=== PATIENT | male | born 1975 | race Native Hawaiian/Other Pacific Islander ===

== ENCOUNTER 2016-12-14 14:15 | Outpatient (CLI) | payer OTHER ==
[~2016-12-14 14:15] MED LIST: ALLEGRA ALRG180 M1 PO; BROMFED DM PO; FLUT0.05 NAS; LIPITOR10 MG PO; MEDROL DOSEPAK4 MG OR; SINGULAIR10 MG OR; SINGULAIR10 MG PO; SPIRIVA IN; Z-PAK PO; ZANTAC300 MG PO
[2016-12-14 14:31] LABS: PLATELET COUNT 234 K/uL (142-355)
[2016-12-14 15:25] LABS: POTASSIUM 4.1 mmol/L (3.6-5.2); SODIUM 137 mmol/L (136-145)
[2017-01-10] MEDS ORDERED: TAMS0.4C PO (09:34)
[2017-01-10] MEDS ORDERED: AMIT10TA21 PO (09:35)
[2017-01-10] MEDS ORDERED: ALBU0.5N6 IN (09:37)
== END 2016-12-14 21:08 | disposition home or self-care (01) ==
LOC: LAB 14:15
PROVIDERS: Nurse Practitioner Family
DX: J44.9 Chronic obstructive pulmonary disease, unspecified (principal); E78.5 Hyperlipidemia, unspecified; K21.9 Gastro-esophageal reflux disease without esophagitis; R53.81 Other malaise; Z79.899 Other long term (current) drug therapy
CPT/HCPCS: 80053; 80061; 83036; 84436; 84443; 85027

== ENCOUNTER 2016-12-26 13:05 | Outpatient (CLI) | payer OTHER ==
[2017-01-10] MEDS ORDERED: TAMS0.4C PO (09:34)
[2017-01-10] MEDS ORDERED: AMIT10TA21 PO (09:35)
[2017-01-10] MEDS ORDERED: ALBU0.5N6 IN (09:37)
== END 2016-12-26 14:05 | disposition home or self-care (01) ==
LOC: LAB 13:05
DX: R94.5 Abnormal results of liver function studies (principal); Z72.51 High risk heterosexual behavior; E78.4 Other hyperlipidemia
CPT/HCPCS: 80074

== ENCOUNTER 2017-01-02 09:28 | Outpatient (CLI) | payer OTHER ==
[2017-01-10] MEDS ORDERED: TAMS0.4C PO (09:34)
[2017-01-10] MEDS ORDERED: AMIT10TA21 PO (09:35)
[2017-01-10] MEDS ORDERED: ALBU0.5N6 IN (09:37)
== END 2017-01-02 19:19 | disposition home or self-care (01) ==
LOC: US 09:28
DX: R94.5 Abnormal results of liver function studies (principal)

== ENCOUNTER 2017-01-08 21:13 | Outpatient (CLI) | payer OTHER ==
[2017-01-10] MEDS ORDERED: TAMS0.4C PO (09:34)
[2017-01-10] MEDS ORDERED: AMIT10TA21 PO (09:35)
[2017-01-10] MEDS ORDERED: ALBU0.5N6 IN (09:37)
== END 2017-01-08 21:15 | disposition short-term general hospital (02) ==
LOC: AMB 21:13
DX: K92.0 Hematemesis (principal); R10.84 Generalized abdominal pain
CPT/HCPCS: A0425; A0427

== ENCOUNTER 2017-09-25 08:53 | Inpatient (IN) | payer OTHER ==
[~2017-09-25] VITALS: Ht 180.3 cm; Wt 49.1 kg
[~2017-09-25 08:53] MED LIST changes: +ALBU0.5N6 IN; +AMIT10TA21 PO; +TAMS0.4C PO
[2017-09-25 10:35] VITALS: BP 130/90; TEMP 98.7; Ht 180.3 cm; Wt 49.1 kg
[2017-09-25 10:59] LABS: PLATELET COUNT 231 K/uL (142-355)
[2017-09-25 12:07] LABS: PARTIAL THROMBOPLASTIN TIME 28.3 SECONDS (24.5-33.6)
[2017-09-25 12:17] VITALS: BP 158/78; TEMP 98.5
[2017-09-25 12:30] LABS: POTASSIUM 4.2 mmol/L (3.6-5.2); SODIUM 130 mmol/L (136-145)
[2017-09-25 15:58] VITALS: BP 126/76; TEMP 97.6
[2017-09-25 20:00] VITALS: BP 136/74; TEMP 97.8
[2017-09-26] VITALS: BP 138/67; TEMP 99.1
[2017-09-26 04:00] VITALS: BP 145/73; TEMP 97.3
[2017-09-26 06:09] LABS: PLATELET COUNT 212 K/uL (142-355)
[2017-09-26 06:21] LABS: POTASSIUM 3.3 mmol/L (3.6-5.2); SODIUM 132 mmol/L (136-145)
[2017-09-26 08:00] VITALS: BP 114/71; TEMP 97.9
[2017-09-26 12:00] VITALS: BP 124/78; TEMP 97.5
[2017-09-26 15:41] VITALS: BP 118/63; TEMP 98.7
[2017-09-26 20:00] VITALS: BP 119/62; TEMP 97.9
[2017-09-27] VITALS: BP 116/61; TEMP 98.3
[2017-09-27 04:00] VITALS: BP 133/72; TEMP 98.2
[2017-09-27 05:51] LABS: PLATELET COUNT 201 K/uL (142-355)
[2017-09-27 06:41] LABS: POTASSIUM 3.1 mmol/L (3.6-5.2); SODIUM 139 mmol/L (136-145)
[2017-09-27 08:00] VITALS: BP 142/79; TEMP 98
[2017-09-27 12:00] VITALS: BP 127/87; TEMP 98
[2017-09-27 16:00] VITALS: BP 117/76; TEMP 97.7
[2017-09-27 20:00] VITALS: BP 129/74; TEMP 97.9
[2017-09-28] VITALS: BP 136/78; TEMP 97.9
[2017-09-28 04:00] VITALS: BP 137/89; TEMP 98.1
[2017-09-28 05:19] LABS: PLATELET COUNT 210 K/uL (142-355)
[2017-09-28 05:46] LABS: POTASSIUM 4.2 mmol/L (3.6-5.2); SODIUM 135 mmol/L (136-145)
[2017-09-28 08:00] VITALS: BP 114/75; TEMP 97.8
--- NOTE | 2017-09-28 08:02 | NUR ---
PT DOES NOT WANT BREATHING TX. .
[2017-09-28 12:00] VITALS: BP 122/80; TEMP 98.2
[2017-09-28 16:14] VITALS: BP 144/88; TEMP 99.4
[2017-09-28 20:00] VITALS: BP 140/83; TEMP 99.1
[2017-09-29] VITALS: BP 126/87; TEMP 99.1
[2017-09-29 04:00] VITALS: BP 121/79; TEMP 100.7
[2017-09-29 05:14] LABS: PLATELET COUNT 248 K/uL (142-355)
[2017-09-29 05:32] LABS: POTASSIUM 3.8 mmol/L (3.6-5.2); SODIUM 134 mmol/L (136-145)
[2017-09-29 08:00] VITALS: BP 127/77; TEMP 97.3
[2017-09-29 12:00] VITALS: BP 135/87; TEMP 98.9
--- NOTE | 2017-09-29 14:28 | NUR ---
1340 PT LEFT AMBULAORY WITH FAMILY. NAD NOTED.
== END 2017-09-29 13:40 | disposition home or self-care (01) | DRG 191 ==
LOC: MED/SURG 08:53
PROVIDERS: Emergency Medicine; ADMIT Nurse Practitioner Family
DX: J44.1 Chronic obstructive pulmonary disease with (acute) exacerbation (principal); E87.1 Hypo-osmolality and hyponatremia; R06.02 Shortness of breath; D72.89 Other specified disorders of white blood cells; E63.8 Other specified nutritional deficiencies; E87.6 Hypokalemia; F17.210 Nicotine dependence, cigarettes, uncomplicated
CPT/HCPCS: 36415; 36591; 36600; 80048; 80053; 82805; 83735; 85027; 85610; 85730; 87040; 87077; 87185; 87205; 93005; 94640; 94664; 94760; 96367; 96374; 96375; J1650; J1956; J2405; J2930; J3490

== ENCOUNTER 2018-06-05 14:08 | Outpatient (CLI) | payer OTHER | END 2018-06-05 14:10 | disposition short-term general hospital (02) | LOC: AMB 14:08 | DX: R07.89 Other chest pain (principal) | CPT/HCPCS: A0425; A0427 ==

== ENCOUNTER 2018-06-05 14:15 | Observation (INO) | payer OTHER ==
[~2018-06-05] VITALS: Ht 180.3 cm; Wt 53.6 kg
[2018-06-05 14:15] VITALS: BP 113/73; TEMP 97.8
[2018-06-05 15:17] LABS: PLATELET COUNT 250 K/uL (142-355)
[2018-06-05 15:30] LABS: POTASSIUM 3.8 mmol/L (3.6-5.2); SODIUM 141 mmol/L (136-145)
[2018-06-05 20:57] VITALS: BP 140/92; TEMP 98.3; Ht 180.3 cm; Wt 53.6 kg
[2018-06-05 23:47] VITALS: BP 137/85; TEMP 98.1
[2018-06-06 04:00] VITALS: BP 125/79; TEMP 98
[2018-06-06 06:13] LABS: PARTIAL THROMBOPLASTIN TIME 25.6 SECONDS (24.5-33.6)
== END 2018-06-06 05:00 | disposition short-term general hospital (02) ==
LOC: ED 14:15 → MED/SURG 18:40
PROVIDERS: ADMIT Emergency Medicine
DX: R07.89 Other chest pain (principal)
CPT/HCPCS: 80053; 82550; 82553; 84484; 85027; 85610; 85730; 93005; 94760; 96374; 96375; 99220; 99284; G0378; J1885; J2405

== ENCOUNTER 2018-06-08 19:24 | Emergency (ER) | payer OTHER ==
[~2018-06-08] VITALS: Ht 180.3 cm; Wt 53.5 kg
[2018-06-08 19:48] LABS: PLATELET COUNT 196 K/uL (142-355)
[2018-06-08 19:56] LABS: POTASSIUM 4.4 mmol/L (3.6-5.2)
[2018-06-08 21:57] VITALS: BP 96/76; TEMP 98.3
== END 2018-06-08 21:57 | disposition short-term general hospital (02) ==
LOC: ED 19:24
DX: I21.4 Non-ST elevation (NSTEMI) myocardial infarction (principal)
CPT/HCPCS: 36415; 80053; 81000; 82550; 82553; 84484; 85027; 93005; 96360; 96361; 99285; J1650

== ENCOUNTER 2019-06-12 08:52 | Outpatient (CLI) | payer OTHER ==
[2019-06-12] MEDS ORDERED: CLOP75TA2 PO (10:09)
[2019-06-12] MEDS ORDERED: LIPITOR40 MG PO ×2 (10:09→10:11)
[2019-06-12] MEDS ORDERED: OMEP40CA PO (10:10)
[2019-06-12] MEDS ORDERED: PRINIVIL5 MG PO (10:10)
[2019-06-12] MEDS ORDERED: CARV3.12 PO (10:11)
== END 2019-06-12 08:55 | disposition short-term general hospital (02) ==
LOC: AMB 08:52
DX: R20.8 Other disturbances of skin sensation (principal); I25.2 Old myocardial infarction
CPT/HCPCS: A0425; A0427

== ENCOUNTER 2019-06-12 08:56 | Emergency (ER) | payer OTHER ==
[~2019-06-12] VITALS: Ht 180.3 cm; Wt 51.7 kg
[2019-06-12 09:31] LABS: PLATELET COUNT 187 K/uL (142-355)
[2019-06-12 09:33] LABS: POTASSIUM 4.4 mmol/L (3.6-5.2); SODIUM 139 mmol/L (136-145)
[2019-06-12] MEDS ORDERED: LIPITOR40 MG PO ×2 (10:09→10:11)
[2019-06-12] MEDS ORDERED: CLOP75TA2 PO (10:09)
[2019-06-12] MEDS ORDERED: OMEP40CA PO (10:10)
[2019-06-12] MEDS ORDERED: PRINIVIL5 MG PO (10:10)
[2019-06-12] MEDS ORDERED: CARV3.12 PO (10:11)
[2019-06-12 10:30] VITALS: BP 117/59; TEMP 97.8
== END 2019-06-12 10:30 | disposition home or self-care (01) ==
LOC: ED 08:56
PROVIDERS: Emergency Medicine
DX: R94.31 Abnormal electrocardiogram [ECG] [EKG] (principal); R00.1 Bradycardia, unspecified; T50.905A Adverse effect of unspecified drugs, medicaments and biological substances, initial encounter; Y92.89 Other specified places as the place of occurrence of the external cause
CPT/HCPCS: 36415; 80053; 80307; 81000; 82550; 83735; 83880; 84484; 85027; 93005; 99284

== ENCOUNTER 2019-07-15 08:02 | Outpatient (CLI) | payer OTHER ==
[~2019-07-15] VITALS: Ht 177.8 cm; Wt 51.3 kg
[~2019-07-15 08:02] MED LIST changes: +CARV3.12 PO; +CLOP75TA2 PO; +LIPITOR40 MG PO; +OMEP40CA PO; +PRINIVIL5 MG PO
== END 2019-07-15 18:58 | disposition home or self-care (01) ==
LOC: NM 08:02
DX: I25.10 Atherosclerotic heart disease of native coronary artery without angina pectoris (principal); R68.89 Other general symptoms and signs; I25.5 Ischemic cardiomyopathy
CPT/HCPCS: A9500; J2785

== ENCOUNTER 2019-09-30 07:04 | Emergency (ER) | payer OTHER ==
[~2019-09-30] VITALS: Ht 180.3 cm; Wt 51.3 kg
[2019-09-30 07:18] VITALS: TEMP 97.3
[2019-09-30 08:47] LABS: PLATELET COUNT 185 K/uL (142-355)
[2019-09-30 08:59] LABS: POTASSIUM 4.3 mmol/L (3.6-5.2)
[2019-09-30 10:08] VITALS: BP 118/64
== END 2019-09-30 10:08 | disposition home or self-care (01) ==
LOC: ED 07:04
PROVIDERS: Family Medicine
DX: N40.0 Benign prostatic hyperplasia without lower urinary tract symptoms (principal)
CPT/HCPCS: 80053; 81000; 85027; 99283

== ENCOUNTER 2020-02-20 10:10 | Emergency (ER) | payer OTHER ==
[~2020-02-20] VITALS: Ht 180.3 cm; Wt 52.2 kg
[2020-02-20 10:10] VITALS: TEMP 100.6
[2020-02-20 11:02] LABS: POTASSIUM 3.7 mmol/L (3.6-5.2); SODIUM 132 mmol/L (136-145)
[2020-02-20 11:39] LABS: PLATELET COUNT 131 K/uL (142-355)
[2020-02-20 12:34] VITALS: BP 118/72
== END 2020-02-20 12:53 | disposition home or self-care (01) ==
LOC: ED 10:15
PROVIDERS: Family Medicine
DX: J06.9 Acute upper respiratory infection, unspecified (principal); J44.9 Chronic obstructive pulmonary disease, unspecified; Z03.818 Encounter for observation for suspected exposure to other biological agents ruled out; J98.4 Other disorders of lung
CPT/HCPCS: 36415; 80053; 81000; 82550; 82553; 83605; 84484; 85007; 85027; 87040; 87502; 87635; 87651; 99284; U0002

== ENCOUNTER 2020-03-05 08:16 | Outpatient (CLI) | payer OTHER | END 2020-03-05 18:55 | disposition home or self-care (01) | LOC: US 08:16 | DX: R94.5 Abnormal results of liver function studies (principal); R63.4 Abnormal weight loss ==

== ENCOUNTER 2022-11-10 11:25 | Outpatient (CLI) | payer OTHER | END 2022-11-10 21:21 | disposition home or self-care (01) | LOC: US 11:25 | PROVIDERS: ATTEND Nurse Practitioner Family | DX: E03.8 Other specified hypothyroidism (principal); E04.2 Nontoxic multinodular goiter ==